=== PATIENT | female | born 1970 | race Caucasian/White ===

== ENCOUNTER 2018-07-28 07:26 | Day surgery (SDC) | payer OTHER ==
[2018-07-27 13:25] VITALS: BMI 37.8
[2018-07-28] MEDS ORDERED: BUPIVACAINE HCL/PF 0.5% (5MG/ML) 10 ML VIAL ONE (07:48)
[2018-07-28] MEDS ORDERED: PROPOFOL 20 ML ONE ×2 (08:48→09:50)
[2018-07-28] MEDS ORDERED: MIDAZOLAM HCL 2 MG/2 ML SINGLE DOSE VIAL ONE ×2 (08:48→09:55)
--- NOTE | 2018-07-28 09:04 | HP ---
Satellite [facility] - Chief Complaint Chief Complaint: left knee pain History of Present Illness: MM tear History Source: Patient Limitations to Obtaining History: No Limitations - Past Medical History Allergies/Adverse Reactions: Allergies Allergy/AdvReac Type Severity Reaction Status Date / Time shellfish derived Allergy Severe Swelling Verified 07/27/18 13:38 ...LMP: 07/15/18 ...LMP Comment: HEAVY FIBROIDS - Current Medications Current Medications: Home Medications Medication Instructions Recorded Fenofibrate 160 mg PO DAILY 01/09/15 Lisinopril [Prinivil] 5 mg PO DAILY 01/09/15 Insulin Degludec [Tresiba 71 units SQ HS 07/27/18 Flextouch U-100] Insulin Lispro [Humalog] 30 unit SQ TID 07/27/18 Satellite Physical Exam - Physical Examination Vital Signs: Vital Signs Period Temp Pulse Resp BP Sys/Cobos Pulse Ox Last 24 Hr 98.0 F-98.0 F 88-88 20-20 125-125/76-76 98 General Appearance: Well Nourished ENT: Clear Lung: Clear to auscultation Heart: Regular rate & rhythm Breasts: Soft Abdomen: Soft Extremities: No edema Satellite Impression/Plan - Impression/Plan Impression: left knee pain, MM tear Operative Procedure: left knee arthroscopy Date to be Performed: 07/28/18
[2018-07-28] MEDS ORDERED: ONDANSETRON 4 MG/2 ML VIAL IVPUSH PRN (09:10)
[2018-07-28] MEDS ORDERED: LACTATED RINGERS SOLUTION 1,000 ML IV SCH (09:15)
[2018-07-28] MEDS ORDERED: BUPIVACAINE HCL/PF (5 MG/ML) 30 ML VIAL IJ ONE ×2 (10:20)
[2018-07-28] MEDS ORDERED: ACETAMINOPHEN INJECTION 100 ML IVPB ONE (10:54)
[2018-07-28] MEDS ORDERED: ACETAMINOPHEN 1000 MG/100 ML VIAL (NON FORMULARY) IVPB ONE ×2 (10:55→10:58)
--- NOTE | 2018-07-28 10:57 | OP ---
Operative Note - Note: Operative Date: 07/28/18 Pre-Operative Diagnosis: left knee pain, MM tear, partial ACL tear Operation: left knee arthroscopy, partial medial meniscectomy, ACL reconstruction via thermal shrinkage Post-Operative Diagnosis: Same as Pre-op Surgeon: Tom Barnett Anesthesiologist/MOPHEAD TRIMMER AND WRAPPER: Deena Morrison Anesthesia: General, Local Specimens Removed: shavings Estimated Blood Loss (mls): 0 Drains, Volume Out (mls): 0 Blood Volume Replaced (mls): 0 Fluid Volume Replaced (mls): 500 Operative Report Dictated: Yes
[2018-07-28] MEDS ORDERED: oxyCODONE HCL 5 MG TABLET PO PRN ×2 (11:56)
[2018-07-28] MEDS ORDERED: oxyCODONE HCL 5 MG TABLET PO ONE (13:13)
[2018-07-28] MEDS ORDERED: oxyCODONE HCL 5 MG TABLET ONE (13:20)
[2018-07-28 14:29] VITALS: BP 125/71; PULSE 89; TEMP 97.7
--- NOTE | 2018-07-28 21:05 | OP ---
DATE OF OPERATION: PREOPERATIVE DIAGNOSIS: Left knee pain, medial meniscus tear, and partial tear of the anterior cruciate ligament. POSTOPERATIVE DIAGNOSIS: Left knee pain, medial meniscus tear, and partial tear of the anterior cruciate ligament. PROCEDURE: Left knee arthroscopy, partial medial meniscectomy, and anterior cruciate ligament dermal shrinkage/reconstruction. SURGEON: Morgan Watson M.D. SUPERVISOR TICKET SALES: None. REPRODUCTION ORDER PROCESSOR: AUGUSTINE Morrison ANESTHESIA: LMA anesthesia and local injection of 20 mL 0.5% Marcaine. DRAINS: None. COMPLICATIONS: None. SPECIMENS: None. FLUID REPLACEMENT: 500 mL Plasmalyte. BLOOD LOSS: None. BLOOD GIVEN: None. INDICATION: This patient is a 47-year-old female with preoperative diagnosis of left knee pain, medial meniscus tear, and partial ACL tear. After understanding the potential risks, complications, alternatives, benefits to surgery versus nonsurgical treatment, the patient elected to undergo procedure. DESCRIPTION OF PROCEDURE: The patient was prepped in the operating room, IV placed, IV sedation given. 2 g of IV Ancef was given. LMA anesthesia was induced. The left lower extremity was placed in C-clamp leg garcía with ample padding throughout. The left lower extremity was prepped and draped in sterile fashion, elevated, exsanguinated with an Esmarch bandage, tourniquet inflated to 275 mmHg. A lateral portal was established under direct visualization, using a spinal needle, a needle portal was established. A diagnostic arthroscopy was performed. The patient was seen to have a complex tear in the posterior horn of the medial meniscus. This was debrided with a curved shaver. Photographs were taken before and after. In addition, the patient had some areas of chondromalacia on both the notch portion of the medial femoral condyle and the medial tibial plateau. This was debrided as well. In the intracondylar notch, the ACL was seen to be partially torn and was debrided. Probe was used to pull on it. It was loose. Therefore, ArthroCare wand in the lowest setting, 1, was used to do an ACL thermal shrinkage in the standard fashion. The probe was then reintroduced into the joint and probed the tension of the ACL, and was seen to be much more appropriate and much tighter than it was before. Next, the lateral compartment was directly visualized and seemed to be pristine. There was no arthritis and the lateral meniscus looked great. Next, patellofemoral compartment was evaluated, patient had very large hypertrophic lateral synovitis, and therefore this was all removed. 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 The undersurface of the patella looked good. The area was debrided as well. The area was copiously irrigated and washed out. All excess saline removed. port was closed with 3-0 nylon sutures. 20 mL of 0.5% Marcaine was introduced into the joint. The area was the washed and dried and covered with Xeroform, 4x4 gauze, Webril, and Delfino bandage. Tourniquet was taken down after total tourniquet time of 25 minutes. There were no complications during the case. Patient tolerated the procedure well and brought to the ambulatory recovery in stable condition. MORGAN WATSON M.D. [id number]
== END 2018-07-28 14:27 | disposition home or self-care (01) ==
LOC: JASU-SURG 07:26
PROVIDERS: ATTEND Orthopaedic Surgery
PROC: 0MQP4ZZ Repair Left Knee Bursa and Ligament, Percutaneous Endoscopic Approach (ICD-10-PCS; 2018-07-28)
PROC: 0SBD4ZZ Excision of Left Knee Joint, Percutaneous Endoscopic Approach (ICD-10-PCS; principal; 2018-07-28 09:00)
DX: S83.242A Other tear of medial meniscus, current injury, left knee, initial encounter (principal); S83.512A Sprain of anterior cruciate ligament of left knee, initial encounter; Y99.9 Unspecified external cause status; X58.XXXA Exposure to other specified factors, initial encounter; Y93.89 Activity, other specified; Y92.9 Unspecified place or not applicable
CPT/HCPCS: 82962; 84703; 94760; 97116-GP; J0131